=== PATIENT | female | born 1940 | race Caucasian/White ===

== ENCOUNTER 2025-03-12 21:11 | Emergency (ER) | payer MEDICARE, OTHER ==
[~2025-03-12] VITALS: Ht 167.6 cm; Wt 55.3 kg
[~2025-03-12 21:11] MED LIST: AMLO1TAB42 PO; ASPI-1169 PO; CAPT25TA3 PO; CARV25TA2 PO; CELE200C PO; DICL100G16 TP; FURO20TA4 PO; LIDO30AD10 TD; MECL-159 PO; METF-440 PO; POTA20PA40 PO; PRAV40TA3 PO; TRAM50TA2 PO; [UNRECOGNIZED DRUG - OTHER] PO; [UNRECOGNIZED DRUG - OTHER] PO
[2025-03-12] MEDS ORDERED: AMLO5TAB4 PO (21:33)
[2025-03-12] MEDS ORDERED: TRAZ-182 PO (21:33)
[2025-03-12 21:54] LABS: PLATELET COUNT (AUTO) 131 K/uL (179-408); RED BLOOD CELL COUNT(AUTO) 3.95 MIL/uL (3.63-4.92); RED CELL DISTRIBUTION WIDTH 16.3 % (12.3-17.7); WHITE BLOOD COUNT (AUTO) 4.8 K/uL (3.8-11.8)
[2025-03-12 22:02] LABS: CREATININE 0.9 mg/dL (0.6-1.3); SODIUM SERUM 146 mmol/L (136-145); UREA NITROGEN, BLOOD 26 mg/dL (7-18)
[2025-03-12] MEDS: IV NORMAL SALINE 1000 ML BAG IV ONE (22:07)
[2025-03-12 22:13] LABS: ASPARTATE AMINOTRANSFERASE 18 U/L (15-37); TOTAL PROTEIN, SERUM 6.9 g/dL (6.4-8.2)
[2025-03-12 22:27] LABS: ETHANOL 382.0 MG/DL (0-10)
[2025-03-12] MEDS ORDERED: IBUPROFEN 600 MG TABLET ONE (22:35)
[2025-03-12] MEDS: IBUPROFEN 600 MG TABLET PO ONE (22:37)
[2025-03-12 23:25] LABS: *AMPHETAMINE, URINE NEGATIVE (NEGATIVE); *BARBITURATE, URINE NEGATIVE (NEGATIVE); *BENZODIAZEPINE, URINE NEGATIVE (NEGATIVE); *CANNABINOID, URINE NEGATIVE (NEGATIVE); *COCCAINE, URINE NEGATIVE (NEGATIVE); *OPIATE, URINE NEGATIVE (NEGATIVE); *PHENCYCLIDINE SCREEN,URINE NEGATIVE (NEGATIVE); FENTANYL, URINE NEGATIVE (NEGATIVE)
[2025-03-13 07:33] VITALS: BP 123/75
[2025-03-13 09:49] VITALS: BP 165/73; O2SAT 96
== END 2025-03-13 09:50 | disposition home or self-care (01) ==
LOC: ER 21:13
DX: F10.129 Alcohol abuse with intoxication, unspecified (principal); M17.12 Unilateral primary osteoarthritis, left knee; E11.9 Type 2 diabetes mellitus without complications; E78.5 Hyperlipidemia, unspecified; E86.0 Dehydration; F17.200 Nicotine dependence, unspecified, uncomplicated; I11.0 Hypertensive heart disease with heart failure; I25.10 Atherosclerotic heart disease of native coronary artery without angina pectoris; I50.9 Heart failure, unspecified; I70.0 Atherosclerosis of aorta; Z79.82 Long term (current) use of aspirin; Z79.84 Long term (current) use of oral hypoglycemic drugs; Z79.899 Other long term (current) drug therapy; Z95.0 Presence of cardiac pacemaker; Z95.5 Presence of coronary angioplasty implant and graft; Y90.9 Presence of alcohol in blood, level not specified
CPT/HCPCS: 80076; 80048; 82962; 84443; 85025; 36415; 71045; 73564; 70450; 93005; 99285; 96360; 80320; 80307; J7040; A4606; A4663; G0480